=== PATIENT | male | born 1955 | race African-American/Black ===

== ENCOUNTER 2020-03-27 12:01 | Inpatient (IN) | payer SELFPAY ==
[~2020-03-27] VITALS: Ht 188 cm; Wt 94.4 kg
[2020-03-27] MEDS ORDERED: SODIUM CHLORIDE 0.9% 1,000 ML IV ONE (12:15)
[2020-03-27 12:28] LABS: HEMATOCRIT. 53.9 % (42.0-52.0); HEMOGLOBIN. 18.7 g/dL (14.0-18.0); MEAN CORPUSCULAR HEMOGLOBIN 30.4 pg (28.0-32.0); MEAN CORPUSCULAR VOLUME 87.7 fL (80.0-94.0); MEAN PLATELET VOLUME 10.6 fl (7.4-10.4); PLATELET 196 x1000/uL (130-400); RED BLOOD CELL COUNT 6.15 mill/uL (4.7-6.1); RED CELL DISTRIBUTION WIDTH 12.4 % (11.6-14.6)
[2020-03-27 12:28] LABS: BG BASE EXCESS -4.7 mmol/L (-2.0-2.0); BG CARBOXYHEMOGLOBIN 0.3 % (0.5-1.5); BG DEOXYHEMOGLOBIN 3.1 % (0.0-5.0); BG FRACTION INSPIRED OXYGEN 48; BG HCO3 ACT 18.3 mmol/L (22.0-26.0); BG METHEMOGLOBIN 0.6 % (0.0-1.5); BG OXYGEN SATURATION 96.9 % (92.0-98.5); BG PCO2 29.9 mmHg (35.0-45.0); BG PH 7.404 (7.350-7.450); BG PO2 91.7 mmHg (75.0-100.0); BG SAMPLE SITE RIGHT RADIAL; BG TOTAL HEMOGLOBIN 19.4 g/dL (12.0-18.0); BG VENT MODE NASAL CANNULA
[2020-03-27 12:37] LABS: CHLORIDE 118 mEq/L (98-107)
[2020-03-27 12:41] LABS: ETHANOL BLOOD < 10 mg/dL
[2020-03-27 12:44] LABS: LDL CHOLESTEROL 49 mg/dL (5-100)
[2020-03-27 12:56] LABS: CREATINE KINASE 2925 IU/L (39-308)
[2020-03-27] MEDS: AMPICILLIN SOD/SULBACTAM NA 3 G in SODIUM CHLORIDE 0.9% 100 ML IV SCH ×2 (13:35→18:47)
[2020-03-27 13:40] LABS: CLARITY URINE CLOUDY (CLEAR); COLOR URINE DK YELLOW (YELLOW); KETONES URINE NEGATIVE (NEGATIVE); LEUKOCYTE ESTERASE URINE NEGATIVE (NEGATIVE); NITRITE URINE NEGATIVE (NEGATIVE); OCCULT BLOOD URINE 2+ (NEGATIVE); PROTEIN URINE TRACE (NEGATIVE); SPECIFIC GRAVITY URINE 1.018 (1.005-1.030)
[2020-03-27 13:47] LABS: PLATELET ESTIMATE NORMAL
[2020-03-27] MEDS ORDERED: PIPERACILLIN/TAZOBACTAM 3.375GM/50ML PREMIX IV ONE (14:00)
[2020-03-27] MEDS ORDERED: VANCOMYCIN 1 G PREMIX 200 ML IV SCH (14:00)
[2020-03-27] MEDS ORDERED: ENOXAPARIN 100MG/ML SYR SUBCUT NR (14:00)
[2020-03-27] MEDS ORDERED: ASPIRIN 600MG SUPP PR NR (14:00)
[2020-03-27] MEDS: SODIUM CHLORIDE 0.45% 1,000 ML IV SCH (14:47)
[2020-03-27 15:13] LABS: *COCAINE SCREEN URINE PRESUMTIVE POSITIVE (NEGATIVE); METHADONE URINE SCREEN NEGATIVE (NEGATIVE); OPIATES URINE SCREEN NEGATIVE (NEGATIVE)
[2020-03-27 15:16] LABS: *BARBITURATES SCREEN URINE NEGATIVE (NEGATIVE); *BENZODIAZEPINES SCREEN URINE NEGATIVE (NEGATIVE); CANNABINOID URINE SCREEN NEGATIVE (NEGATIVE)
[2020-03-27 15:17] LABS: PHENCYCLIDINE URINE SCREEN NEGATIVE (NEGATIVE)
[2020-03-27 15:19] LABS: *AMPHETAMINES SCREEN URINE NEGATIVE (NEGATIVE)
[2020-03-27 15:22] LABS: INR 1.1; PROTHROMBIN TIME 11.1 sec (9.6-11.0)
[2020-03-27] MEDS ORDERED: NALOXONE HCL 0.4 MG/ML 1ML VIAL IV ONE (16:15)
[2020-03-27] MEDS ORDERED: LABETALOL 5MG/ML SYR 20 MG/4 ML SYRINGE IV ONE (16:30)
[2020-03-27] MEDS ORDERED: AMLODIPINE 10MG TABLET PO SCH (18:00)
[2020-03-27] MEDS ORDERED: HYDRALAZINE HCL 100MG TABLET PO NR (18:00)
[2020-03-27] MEDS ORDERED: KCL 20MEQ/100ML PREMIX 100 ML IV ONE (20:00)
[2020-03-27] MEDS: HYDRALAZINE HCL 100MG TABLET PO SCH (22:00)
[2020-03-28] MEDS ORDERED: LABETALOL 5MG/ML SYR 20 MG/4 ML SYRINGE IV SCH
[2020-03-28] MEDS: SODIUM CHLORIDE 0.45% 1,000 ML IV SCH ×3 (00:15→21:46)
[2020-03-28] MEDS: AMPICILLIN SOD/SULBACTAM NA 3 G in SODIUM CHLORIDE 0.9% 100 ML IV SCH ×2 (02:33→21:34)
[2020-03-28] MEDS: HYDRALAZINE HCL 100MG TABLET PO SCH ×3 (06:00→22:00)
[2020-03-28] MEDS ORDERED: ONDANSETRON HCL 4MG/2ML INJ IV PRN (08:45)
[2020-03-28] MEDS: ASPIRIN 81MG TABLET PO SCH (09:00)
[2020-03-28] MEDS: AMLODIPINE 5MG TABLET PO SCH (09:30)
[2020-03-28] MEDS: ENOXAPARIN 100MG/ML SYR SUBCUT SCH (10:13)
[2020-03-28] MEDS: PANTOPRAZOLE SODIUM 40 MG/VIAL IV SCH (10:13)
[2020-03-28 11:14] LABS: HEMATOCRIT. 53.2 % (42.0-52.0); MEAN CORPUSCULAR HEMOGLOBIN 30.1 pg (28.0-32.0); MEAN CORPUSCULAR VOLUME 88.9 fL (80.0-94.0); MEAN PLATELET VOLUME 9.4 fl (7.4-10.4); PLATELET 172 x1000/uL (130-400); RED BLOOD CELL COUNT 5.98 mill/uL (4.7-6.1); RED CELL DISTRIBUTION WIDTH 12.7 % (11.6-14.6)
[2020-03-28] MEDS ORDERED: ASPIRIN 300MG SUPP PR NR (11:30)
[2020-03-28] MEDS: LABETALOL 5MG/ML SYR 20 MG/4 ML SYRINGE IV SCH ×2 (12:00→18:00)
[2020-03-28 12:52] LABS: PLATELET ESTIMATE NORMAL
[2020-03-28] MEDS ORDERED: SUCCINYLCHOLINE CHLORIDE 200MG/10ML IV ONE (17:15)
[2020-03-28] MEDS ORDERED: ETOMIDATE 2MG/ML 10ML VIAL IV ONE (17:15)
[2020-03-28] MEDS ORDERED: VANCOMYCIN 2,000 MG in DEXT 5% WATER 500 ML IV NR (17:30)
[2020-03-28] MEDS ORDERED: IPRATROPIUM/ALBUTEROL 0.5-3(2.5)MG/3ML NEB HHN PRN (17:30)
[2020-03-28] MEDS ORDERED: PIPERACILLIN/TAZOBACTAM 3.375 G in DEXT 5% WATER 100 ML IV SCH (18:00)
[2020-03-28] MEDS ORDERED: MIDAZOLAM HCL 100 MG in DEXT 5% WATER 80 ML IV ONE (18:45)
[2020-03-28] MEDS ORDERED: LORAZEPAM 2MG/ML CPJ IV NR (18:45)
[2020-03-28] MEDS ORDERED: MIDAZOLAM HCL 100 MG in DEXT 5% WATER 80 ML IV NR (19:00)
[2020-03-28 20:26] LABS: BG BASE EXCESS -4.3 mmol/L (-2.0-2.0); BG DEOXYHEMOGLOBIN 2.4 % (0.0-5.0); BG FRACTION INSPIRED OXYGEN 100; BG HCO3 ACT 21.6 mmol/L (22.0-26.0); BG METHEMOGLOBIN 0.5 % (0.0-1.5); BG OXYGEN SATURATION 97.6 % (92.0-98.5); BG OXYHEMOGLOBIN 97.1 % (94.0-97.0); BG PCO2 42.6 mmHg (35.0-45.0); BG PH 7.323 (7.350-7.450); BG PO2 104.1 mmHg (75.0-100.0); BG VENT MODE VENT - AC
[2020-03-28] MEDS: IPRATROPIUM/ALBUTEROL 0.5-3(2.5)MG/3ML NEB HHN SCH (21:25)
[2020-03-28] MEDS: ACETYLCYSTEINE 100MG/ML 10% VIAL 4ML INH SCH (22:00)
[2020-03-29] VITALS (66 sets, daily range): BP systolic 109–182; BP diastolic 59–110
[2020-03-29] MEDS: IPRATROPIUM/ALBUTEROL 0.5-3(2.5)MG/3ML NEB HHN SCH ×5 (04:02→20:46)
[2020-03-29] MEDS: ACETYLCYSTEINE 100MG/ML 10% VIAL 4ML INH SCH ×3 (04:02→16:23)
[2020-03-29] MEDS: PIPERACILLIN/TAZOBACTAM 2.25 G in DEXTROSE 5% WATER 50 ML IV SCH ×4 (05:23→23:39)
[2020-03-29] MEDS: LABETALOL 5MG/ML SYR 20 MG/4 ML SYRINGE IV SCH ×5 (05:23→23:40)
[2020-03-29] MEDS: HYDRALAZINE HCL 100MG TABLET PO SCH ×3 (05:24→21:12)
[2020-03-29] MEDS: SODIUM CHLORIDE 0.45% 1,000 ML IV SCH ×2 (06:27→17:34)
[2020-03-29 06:35] LABS: BASOPHILS % 0.1 % (0.0-2.0); EOSINOPHILS % 0.8 % (0.0-5.0); HEMATOCRIT. 50.1 % (42.0-52.0); LYMPHOCYTES % 8.6 % (20.0-50.0); MEAN CORPUSCULAR HEMOGLOBIN 30.9 pg (28.0-32.0); MEAN CORPUSCULAR VOLUME 90.9 fL (80.0-94.0); MONOCYTES % 10.8 % (2.0-8.0); NEUTROPHILS % 79.7 % (40.0-76.0); RED BLOOD CELL COUNT 5.51 mill/uL (4.7-6.1)
[2020-03-29 08:54] LABS: BG CARBOXYHEMOGLOBIN 0.4 % (0.5-1.5); BG DEOXYHEMOGLOBIN 0.7 % (0.0-5.0); BG FRACTION INSPIRED OXYGEN 100; BG METHEMOGLOBIN 0.3 % (0.0-1.5); BG OXYGEN SATURATION 99.3 % (92.0-98.5); BG OXYHEMOGLOBIN 98.6 % (94.0-97.0); BG PCO2 31.8 mmHg (35.0-45.0); BG PH 7.437 (7.350-7.450); BG PO2 261.6 mmHg (75.0-100.0); BG SAMPLE SITE RIGHT RADIAL; BG TOTAL HEMOGLOBIN 16.8 g/dL (12.0-18.0); BG VENT MODE VENT - AC
[2020-03-29 09:08] LABS: PLATELET 144 x1000/uL (130-400)
[2020-03-29] MEDS: PANTOPRAZOLE SODIUM 40 MG/VIAL IV SCH (09:19)
[2020-03-29] MEDS: ASPIRIN 81MG TABLET PO SCH (09:20)
[2020-03-29] MEDS: ENOXAPARIN 100MG/ML SYR SUBCUT SCH ×2 (09:20→21:07)
[2020-03-29] MEDS: AMLODIPINE 5MG TABLET PO SCH (09:20)
[2020-03-29] MEDS: FENTANYL CITRATE/PF 2,500 MCG in SODIUM CHLORIDE 0.9% 200 ML IV PRN (12:09)
[2020-03-29] MEDS ORDERED: VANCOMYCIN 1250MG in DEXTROSE 5% WATER 250ML IV SCH (18:00)
[2020-03-29] MEDS ORDERED: VANCOMYCIN 1 G PREMIX 200 ML IV SCH (21:00)
[2020-03-30] VITALS (82 sets, daily range): BP systolic 93–152; BP diastolic 55–96
[2020-03-30] MEDS: ACETYLCYSTEINE 100MG/ML 10% VIAL 4ML INH SCH ×4 (00:51→23:57)
[2020-03-30] MEDS: IPRATROPIUM/ALBUTEROL 0.5-3(2.5)MG/3ML NEB HHN SCH ×7 (00:52→23:57)
[2020-03-30] MEDS: ACETAMINOPHEN 650MG/20.3ML UDC PO PRN ×2 (01:12→17:49)
[2020-03-30] MEDS: PIPERACILLIN/TAZOBACTAM 2.25 G in DEXTROSE 5% WATER 50 ML IV SCH ×3 (05:00→17:22)
[2020-03-30] MEDS: HYDRALAZINE HCL 100MG TABLET PO SCH (05:01)
[2020-03-30 05:53] LABS: BASOPHILS % 0.3 % (0.0-2.0); EOSINOPHILS % 0.7 % (0.0-5.0); HEMATOCRIT. 48.5 % (42.0-52.0); HEMOGLOBIN. 16.2 g/dL (14.0-18.0); LYMPHOCYTES % 9.7 % (20.0-50.0); MEAN CORPUSCULAR HEMOGLOBIN 30.6 pg (28.0-32.0); MEAN CORPUSCULAR VOLUME 91.4 fL (80.0-94.0); MEAN PLATELET VOLUME 9.8 fl (7.4-10.4); MONOCYTES % 14.5 % (2.0-8.0); NEUTROPHILS % 74.8 % (40.0-76.0); PLATELET 161 x1000/uL (130-400); RED CELL DISTRIBUTION WIDTH 12.9 % (11.6-14.6)
[2020-03-30] MEDS: LABETALOL 5MG/ML SYR 20 MG/4 ML SYRINGE IV SCH (06:14)
[2020-03-30] MEDS: PANTOPRAZOLE SODIUM 40 MG/VIAL IV SCH ×2 (09:00→12:33)
[2020-03-30] MEDS: ASPIRIN 81MG TABLET PO SCH (09:12)
[2020-03-30] MEDS: ENOXAPARIN 100MG/ML SYR SUBCUT SCH ×2 (09:12→20:23)
[2020-03-30] MEDS: AMLODIPINE 5MG TABLET PO SCH (09:12)
[2020-03-30] MEDS: SODIUM CHLORIDE 0.45% 1,000 ML IV SCH ×2 (12:34→20:08)
[2020-03-30] MEDS ORDERED: VANCOMYCIN 1 G PREMIX 200 ML IV SCH (18:00)
[2020-03-30 22:17] LABS: T4 FREE 1.22 ng/dL (0.76-1.46)
[2020-03-30 22:26] LABS: FOLIC ACID (FOLATE) SERUM 11.1 ng/mL (>5.38)
[2020-03-30] MEDS: FENTANYL CITRATE/PF 2,500 MCG in SODIUM CHLORIDE 0.9% 200 ML IV PRN (23:56)
[2020-03-31] VITALS (95 sets, daily range): BP systolic 93–168; BP diastolic 61–101
[2020-03-31] MEDS: PIPERACILLIN/TAZOBACTAM 2.25 G in DEXTROSE 5% WATER 50 ML IV SCH ×5 (00:05→23:49)
[2020-03-31] MEDS: IPRATROPIUM/ALBUTEROL 0.5-3(2.5)MG/3ML NEB HHN SCH ×5 (04:17→21:04)
[2020-03-31 05:35] LABS: BASOPHILS % 0.3 % (0.0-2.0); EOSINOPHILS % 0.9 % (0.0-5.0); HEMATOCRIT. 47.1 % (42.0-52.0); HEMOGLOBIN. 15.4 g/dL (14.0-18.0); LYMPHOCYTES % 10.9 % (20.0-50.0); MEAN CORPUSCULAR HEMOGLOBIN 30.3 pg (28.0-32.0); MEAN CORPUSCULAR VOLUME 92.7 fL (80.0-94.0); MONOCYTES % 12.6 % (2.0-8.0); NEUTROPHILS % 75.3 % (40.0-76.0); PLATELET 151 x1000/uL (130-400); RED BLOOD CELL COUNT 5.08 mill/uL (4.7-6.1); RED CELL DISTRIBUTION WIDTH 13.4 % (11.6-14.6)
[2020-03-31] MEDS: SODIUM CHLORIDE 0.45% 1,000 ML IV SCH ×2 (07:27→17:14)
[2020-03-31] MEDS: ACETYLCYSTEINE 100MG/ML 10% VIAL 4ML INH SCH ×2 (08:44→15:51)
[2020-03-31] MEDS: FAMOTIDINE 20MG/2ML VIAL IV SCH (09:33)
[2020-03-31] MEDS: ASPIRIN 81MG TABLET PO SCH (09:33)
[2020-03-31] MEDS: ENOXAPARIN 100MG/ML SYR SUBCUT SCH ×2 (09:33→21:24)
[2020-03-31] MEDS: CLOPIDOGREL 75MG TABLET PO SCH (09:34)
[2020-03-31] MEDS: ACETAMINOPHEN 650MG/20.3ML UDC PO PRN ×3 (10:16→23:56)
[2020-03-31] MEDS: VANCOMYCIN 1 G PREMIX 200 ML IV SCH (13:19)
[2020-03-31] MEDS: FENTANYL CITRATE/PF 2,500 MCG in SODIUM CHLORIDE 0.9% 200 ML IV PRN (23:49)
[2020-04-01] VITALS (106 sets, daily range): BP systolic 60–213; BP diastolic 21–147
[2020-04-01] MEDS: IPRATROPIUM/ALBUTEROL 0.5-3(2.5)MG/3ML NEB HHN SCH ×6 (00:27→20:11)
[2020-04-01] MEDS: ACETYLCYSTEINE 100MG/ML 10% VIAL 4ML INH SCH ×3 (00:27→16:40)
[2020-04-01] MEDS ORDERED: ACETAMINOPHEN WITH CODEINE 300/30MG TABLET PO PRN (05:15)
[2020-04-01] MEDS: PIPERACILLIN/TAZOBACTAM 2.25 G in DEXTROSE 5% WATER 50 ML IV SCH ×3 (05:36→20:56)
[2020-04-01] MEDS: SODIUM CHLORIDE 0.45% 1,000 ML IV SCH ×2 (05:39→23:20)
[2020-04-01] MEDS: PHENYLEPHRINE 50 MG in DEXT 5% WATER 245 ML IV PRN ×5 (05:50→21:42)
[2020-04-01] MEDS: VANCOMYCIN 1 G PREMIX 200 ML IV SCH (07:00)
[2020-04-01 07:34] LABS: BASOPHILS % 0.5 % (0.0-2.0); EOSINOPHILS % 0.3 % (0.0-5.0); HEMATOCRIT. 35.9 % (42.0-52.0); HEMOGLOBIN. 11.8 g/dL (14.0-18.0); LYMPHOCYTES % 7.8 % (20.0-50.0); MEAN CORPUSCULAR HEMOGLOBIN 30.7 pg (28.0-32.0); MEAN CORPUSCULAR VOLUME 93.4 fL (80.0-94.0); MEAN PLATELET VOLUME 10.3 fl (7.4-10.4); MONOCYTES % 8.2 % (2.0-8.0); NEUTROPHILS % 83.2 % (40.0-76.0); PLATELET 191 x1000/uL (130-400); RED BLOOD CELL COUNT 3.85 mill/uL (4.7-6.1)
[2020-04-01] MEDS: FAMOTIDINE 20MG/2ML VIAL IV SCH (08:02)
[2020-04-01] MEDS: ENOXAPARIN 100MG/ML SYR SUBCUT SCH (08:02)
[2020-04-01] MEDS: ASPIRIN 81MG TABLET PO SCH (08:03)
[2020-04-01] MEDS: CLOPIDOGREL 75MG TABLET PO SCH (08:04)
[2020-04-01] MEDS ORDERED: SODIUM POLYSTYRENE SULFONATE 15 G/60 ML BOT PO NR (10:30)
[2020-04-01] MEDS ORDERED: SODIUM BICARBONATE 8.4% 1 MEQ/ML 50ML SYR IV NR ×2 (12:00→23:15)
[2020-04-01] MEDS: VASOPRESSIN 20 UNIT in SODIUM CHLORIDE 0.9% 99 ML IV PRN ×2 (12:41→19:54)
[2020-04-01] MEDS ORDERED: MIDAZOLAM HCL 100 MG in DEXT 5% WATER 80 ML IV PRN (14:15)
[2020-04-01] MEDS: NOREPINEPHRINE 8 MG in DEXT 5% WATER 242 ML IV PRN ×2 (15:25→20:49)
[2020-04-01] MEDS: FENTANYL CITRATE/PF 2,500 MCG in SODIUM CHLORIDE 0.9% 200 ML IV PRN (19:59)
[2020-04-01] MEDS ORDERED: NOREPINEPHRINE 32 MG in DEXT 5% WATER 218 ML IV PRN (20:49)
[2020-04-01] MEDS ORDERED: INSULIN REGULAR (HUMULIN R) 300UNITS/3ML VIAL IV NR (21:30)
[2020-04-01] MEDS ORDERED: INSULIN REGULAR (HUMULIN R) 300UNITS/3ML VIAL IV ONE (21:30)
[2020-04-01 22:33] LABS: BG BASE EXCESS -14.2 mmol/L (-2.0-2.0); BG CARBOXYHEMOGLOBIN 0.3 % (0.5-1.5); BG DEOXYHEMOGLOBIN 67.8 % (0.0-5.0); BG FRACTION INSPIRED OXYGEN 100; BG HCO3 ACT 18.6 mmol/L (22.0-26.0); BG METHEMOGLOBIN 0.6 % (0.0-1.5); BG OXYGEN SATURATION 31.6 % (92.0-98.5); BG OXYHEMOGLOBIN 31.3 % (94.0-97.0); BG PCO2 88.2 mmHg (35.0-45.0); BG PH 6.941 (7.350-7.450); BG PO2 < 30.3 mmHg (75.0-100.0); BG SAMPLE SITE RIGHT FEMORAL; BG TOTAL HEMOGLOBIN 10.4 g/dL (12.0-18.0); BG TOTAL RESPIRATORY RATE 17 b/min; BG VENT MODE VENT - AC
[2020-04-01] MEDS ORDERED: DOPAMINE 400MG/250ML PREMIX 250 ML IV PRN (23:45)
[2020-04-02] MEDS: IPRATROPIUM/ALBUTEROL 0.5-3(2.5)MG/3ML NEB HHN SCH (00:07)
[2020-04-02] MEDS: ACETYLCYSTEINE 100MG/ML 10% VIAL 4ML INH SCH (00:07)
[2020-04-02 00:21] VITALS: BP 136/60
[2020-04-02 00:33] VITALS: BP 100/70
[2020-04-02] MEDS ORDERED: DEXTROSE 50% WATER 50ML SYRINGE IV ONE (00:41)
[2020-04-02 00:47] VITALS: BP 103/36
[2020-04-02] MEDS ORDERED: INSULIN REGULAR (HUMULIN R) 300UNITS/3ML VIAL IV SCH ×3 (01:00)
[2020-04-02] MEDS ORDERED: ENOXAPARIN 100MG/ML SYR SUBCUT SCH (09:00)
== END 2020-04-02 00:53 | disposition expired | DRG 720 ==
LOC: ER 12:01 → EDBEDREQTM 14:01 → EDBEDREQ 14:01 → EDBEDREQSVC 14:01 → MICUSO 17:07 → EDBEDREQ 17:10 → EDBEDREQTM 17:10 → 5EST 03-29 00:31
PROVIDERS: ADMIT Internal Medicine Nephrology; ATTEND Internal Medicine Nephrology
PROC: 5A1955Z Respiratory Ventilation, Greater than 96 Consecutive Hours (ICD-10-PCS; 2020-03-28)
PROC: 0BH18EZ Insertion of Endotracheal Airway into Trachea, Via Natural or Artificial Opening Endoscopic (ICD-10-PCS; 2020-03-28)
PROC: 05HY33Z Insertion of Infusion Device into Upper Vein, Percutaneous Approach (ICD-10-PCS; principal; 2020-04-01)
PROC: B54NZZA Ultrasonography of Left Upper Extremity Veins, Guidance (ICD-10-PCS; 2020-04-01)
DX: A41.9 Sepsis, unspecified organism (principal); E43 Unspecified severe protein-calorie malnutrition; E87.0 Hyperosmolality and hypernatremia; E87.2 Acidosis; E87.5 Hyperkalemia; E87.6 Hypokalemia; F14.10 Cocaine abuse, uncomplicated; G92 Toxic encephalopathy; I12.9 Hypertensive chronic kidney disease with stage 1 through stage 4 chronic kidney disease, or unspecified chronic kidney disease; I21.4 Non-ST elevation (NSTEMI) myocardial infarction; I63.9 Cerebral infarction, unspecified; J18.9 Pneumonia, unspecified organism; J96.01 Acute respiratory failure with hypoxia; M47.812 Spondylosis without myelopathy or radiculopathy, cervical region; M62.82 Rhabdomyolysis; N17.9 Acute kidney failure, unspecified; T40.5X5A Adverse effect of cocaine, initial encounter; N18.9 Chronic kidney disease, unspecified; R74.01 Elevation of levels of liver transaminase levels; Z20.828 Contact with and (suspected) exposure to other viral communicable diseases; Z78.1 Physical restraint status; Y92.89 Other specified places as the place of occurrence of the external cause; Z79.899 Other long term (current) drug therapy; Z68.26 Body mass index [BMI] 26.0-26.9, adult
CPT/HCPCS: 36415; 36600; 70496; 70498; 70551; 71045; 76937; 80048; 80053; 80061; 80076; 80202; 80305; 80320; 81003; 82140; 82375; 82550; 82607; 82746; 82805; 82962; 83036; 83605; 83721; 83880; 84439; 84443; 84481; 84484; 85025; 86850; 86900; 87070; 87635; 93005; 93306; 96365; 99291; C1725; C9113; J0295; J0330; J1650; J1815; J2060; J2250; J2310; J2370; J2543; J3010; J3370; J3480; J3490; J7030; J7050; J7060; J7608; G0480